=== PATIENT | male | born 1995 | race Caucasian/White ===

== ENCOUNTER 2022-11-06 15:56 | Emergency (ER) | payer SELFPAY ==
[2022-11-06] MEDS ORDERED: LIDOCAINE 1% 20 ML MDV ONE (16:26)
--- NOTE | 2022-11-06 16:36 | EDPHYS ---
Physician Documentation [facility] Name: Lew Pearson Age: 26 yrs Sex: Male : 1995 Arrival Date: 11/06/2022 Time: 15:56 Bed 9 Private MD: ED Physician Cipriano Pompa HPI: 11/06 16:13 This 26 yrs old Male presents to ER via Ambulatory with complaints of Back Pain, jmm Abscess. 16:13 The patient presents with pain that is acute. The symptoms are located in the left jmm subscapular area. Onset: The symptoms/episode began/occurred gradually, 1 month(s) ago. The pain does not radiate. Associated signs and symptoms: Pertinent negatives: fever. Modifying factors: The patient symptoms are alleviated by nothing, the patient symptoms are aggravated by. This is a 26 year old male with no medical conditions presents emerged department with complaints of a mass to the left side of his back. Noticed it approximately a month ago. States it is increased in size and has become uncomfortable. Denies fever, redness or purulent drainage.. Historical: - Allergies: 16:15 No Known Allergies; mb9 - Home Meds: 16:15 None [Active]; mb9 - PMHx: 16:15 None; mb9 - PSHx: 16:15 right knee; mb9 - Immunization history:: Adult Immunizations up to date. - Social history:: Smoking status: Patient denies any tobacco usage or history of. ROS: 16:13 Constitutional: Negative for fever, chills, and weight loss, Cardiovascular: Negative jmm for chest pain, palpitations, and edema, Respiratory: Negative for shortness of breath, cough, wheezing, and pleuritic chest pain. 16:13 All other systems are negative. Exam: 16:13 Constitutional: This is a well developed, well nourished patient who is awake, alert, jmm and in no acute distress. Head/Face: atraumatic. Eyes: EOMI, no conjunctival erythema appreciated ENT: Moist Mucus Membranes Neck: Trachea midline, Supple Chest/axilla: Normal chest wall appearance and motion. Cardiovascular: Regular rate and rhythm. No edema appreciated Respiratory: Normal respirations, no respiratory distress appreciated Abdomen/GI: Non distended 16:13 Back: cyst like mass noted to the left side of the thoracic back. 16:13 Musculoskeletal/extremity: ROM: intact in all extremities. 16:13 Skin: Appearance: Color: normal in color. 16:13 Neuro: Orientation: is normal, Mentation: is normal, Memory: is normal. 16:13 Psych: Behavior/mood is pleasant, cooperative. Vital Signs: 16:14 BP 127 / 79; Pulse 84; Resp 18; Temp 98.3(O); Pulse Ox 100% on R/A; Weight 97.52 kg; mb9 Height 6 ft. 0 in. ; Pain 2/10; 16:14 Body Mass Index 29.16 (97.52 kg, 182.88 cm) mb9 16:14 Pain Scale: Adult mb9 Procedures: 16:34 I \T\ D: Incision and drainage was performed for an abscess of the back Prepped with [facility] Betadine, Anesthetized with 1 ml's 1% Lidocaine. Incised with #11 blade. Drained moderate amount cyst Packed with Dressing: sterile 4x4 gauze, the patient tolerated the procedure well. MDM: 16:13 Patient medically screened. [facility] 16:34 Differential diagnosis: cyst, abscess. Data reviewed: vital signs, nurses notes. I ross considered the following discharge prescriptions or medication management in the emergency department Medications were administered in the Emergency Department. See MAR. Counseling: I had a detailed discussion with the patient and/or guardian regarding: the historical points, exam findings, and any diagnostic results supporting the discharge/admit diagnosis, the need for outpatient follow up, to return to the emergency department if symptoms worsen or persist or if there are any questions or concerns that arise at home. Administered Medications: 16:26 Drug: Lidocaine Infiltration (1 %) 20 ml Volume: 20 ml; Route: Infiltration; mb9 Disposition: 19:34 Co-signature as Attending Physician, Cipriano Pompa DO I was immediately available on-site ms3 in the Emergency Department for consultation in the care of the patient. Disposition Summary: 11/06/22 16:35 Discharge Ordered Location: Home cecilia Condition: Stable cecilia Diagnosis - Sebaceous cyst cecilia Followup: [facility] - With: Ji Durand MD - When: 2 - 3 days - Reason: Recheck today's complaints, Continuance of care, Re-evaluation by your physician Discharge Instructions: - Discharge Summary Sheet [facility] - Incision and Drainage, Care After jmm - Epidermoid Cyst Drainage [facility] Forms: - Medication Reconciliation Form [facility] - Thank You Letter [facility] - Antibiotic Education [facility] - Prescription Opioid Use [facility] Prescriptions: - Doxycycline Hyclate 100 mg Oral Tablet - take 1 tablet by ORAL route every 12 hours; 20 tablet; Refills: 0, Product alba Selection Permitted Signatures: Otf Simpson PA PA jmm Sims, Marcus, DO DO ms3 Sharmila Linton RN RN mb9
--- NOTE | 2022-11-06 16:36 | ER ---
Nurse's Notes [facility] Name: Lew Pearson Age: 26 yrs Sex: Male : 1995 Arrival Date: 11/06/2022 Time: 15:56 Bed 9 Private MD: Diagnosis: Sebaceous cyst Presentation: 11/06 16:14 Chief complaint: Patient states: "I've had this abscess on my left upper back for the mb9 past few months and it's getting bigger and hurting.". Coronavirus screen: Vaccine status: Patient reports receiving the 2nd dose of the covid vaccine. Ebola Screen: No symptoms or risks identified at this time. Initial Sepsis Screen: Does the patient meet any 2 criteria? No. Patient's initial sepsis screen is negative. Does the patient have a suspected source of infection? No. Patient's initial sepsis screen is negative. Risk Assessment: Do you want to hurt yourself or someone else? Patient reports no desire to harm self or others. Onset of symptoms was November 06, 2022. 16:14 Method Of Arrival: Ambulatory [facility] 16:14 Acuity: RICKY 4 mb9 Triage Assessment: 16:15 General: Appears in no apparent distress. Behavior is calm, cooperative. Pain: mb9 Complains of pain in back Pain does not radiate. Neuro: Level of Consciousness is awake, alert, obeys commands, Oriented to person, place, time, situation, Appropriate for age. Cardiovascular: Patient's skin is warm and dry. Respiratory: Airway is patent Respiratory effort is even, unlabored, Respiratory pattern is regular, symmetrical. Derm: Abscess located on left upper back is quarter sized, is red, is raised. Musculoskeletal: Range of motion: intact in all extremities. Historical: - Allergies: 16:15 No Known Allergies; mb9 - Home Meds: 16:15 None [Active]; mb9 - PMHx: 16:15 None; mb9 - PSHx: 16:15 right knee; mb9 - Immunization history:: Adult Immunizations up to date. - Social history:: Smoking status: Patient denies any tobacco usage or history of. Screenin:17 [facility] ED Fall Risk Assessment (Adult) History of falling in the last 3 months, mb9 including since admission No falls in past 3 months (0 pts) Confusion or Disorientation No (0 pts) Intoxicated or Sedated No (0 pts) Impaired Gait No (0 pts) Mobility Assist Device Used No (0 pt) Altered Elimination No (0 pt) Score/Fall Risk Level 0 - 2 = Low Risk Oriented to surroundings, Maintained a safe environment, Educated pt \\T\\ family on fall prevention, incl call for assistance when getting out of bed. Abuse screen: Denies threats or abuse. Nutritional screening: No deficits noted. Tuberculosis screening: No symptoms or risk factors identified. Assessment: 16:16 Reassessment: see triage assessment. mb9 Vital Signs: 16:14 BP 127 / 79; Pulse 84; Resp 18; Temp 98.3(O); Pulse Ox 100% on R/A; Weight 97.52 kg; mb9 Height 6 ft. 0 in. ; Pain 2/10; 16:14 Body Mass Index 29.16 (97.52 kg, 182.88 cm) mb9 16:14 Pain Scale: Adult mb9 ED Course: 15:59 Patient arrived in ED. mr 16:03 Otf Simpson PA is PHCP. [facility] 16:03 Cipriano Pompa DO is Attending Physician. [facility] 16:10 Sharmila Linton, SHENA is Primary Nurse. mb9 16:14 Arm band placed on. mb9 16:15 Triage completed. mb9 16:17 Placed in gown. Bed in low position. Call light in reach. Side rails up X 1. Client mb9 placed on continuous cardiac and pulse oximetry monitoring. NIBP monitoring applied. 16:17 No provider procedures requiring assistance completed. mb9 16:35 Ji Durand MD is Referral Physician. [facility] 16:41 Patient did not have IV access during this emergency room visit. mb9 Administered Medications: 16:26 Drug: Lidocaine Infiltration (1 %) 20 ml Volume: 20 ml; Route: Infiltration; mb9 Medication: 16:17 VIS not applicable for this client. mb9 Outcome: 16:35 Discharge ordered by . [facility] 16:40 Discharged to home ambulatory. mb9 16:40 Condition: stable 16:40 Discharge instructions given to patient, Instructed on discharge instructions, follow up and referral plans. Demonstrated understanding of instructions, follow-up care, medications, Prescriptions given X 1. 16:41 Patient left the ED. mb9 Signatures: MickaOtf lowe PA PA jmm Rivera, Sharmila mr Royer, Sharmila Cuello, RN RN mb9
[2022-11-06 16:59] VITALS: BP 127/79; TEMP 98.3; O2SAT 100
== END 2022-11-06 16:41 | disposition home or self-care (01) ==
LOC: ER 15:56
PROC: 0H96XZZ Drainage of Back Skin, External Approach (ICD-10-PCS; principal; 2022-11-06)
DX: L72.3 Sebaceous cyst (principal)
CPT/HCPCS: J2001